=== PATIENT | male | born 1965 | race Caucasian/White ===

== ENCOUNTER 2021-03-29 18:33 | Emergency (ER) | payer OTHER ==
[~2021-03-29] VITALS: Ht 177.8 cm; Wt 100.0 kg
[~2021-03-29 18:33] MED LIST: IBUP-2759 PO
[2021-03-29 20:30] VITALS: BP 133/81
== END 2021-03-29 20:51 | disposition home or self-care (01) ==
LOC: EMS 18:33
DX: S39.011A Strain of muscle, fascia and tendon of abdomen, initial encounter (principal); W21.02XA Struck by soccer ball, initial encounter; Y93.89 Activity, other specified; Y92.89 Other specified places as the place of occurrence of the external cause; Y99.8 Other external cause status
CPT/HCPCS: 99281; Z7502